=== PATIENT | female | born 1975 | race African-American/Black ===

== ENCOUNTER 2018-08-25 16:06 | Emergency (ER) | payer BC ==
[~2018-08-25] VITALS: Ht 167.6 cm; Wt 79.4 kg
[2018-08-25 16:08] VITALS: Ht 167.6 cm; Wt 79.4 kg
[2018-08-25 20:34] VITALS: BP 131/81
== END 2018-08-25 20:34 | disposition home or self-care (01) ==
LOC: ED 16:06
DX: S82.842A Displaced bimalleolar fracture of left lower leg, initial encounter for closed fracture (principal); I10 Essential (primary) hypertension; W18.30XA Fall on same level, unspecified, initial encounter; Y93.89 Activity, other specified; Y92.89 Other specified places as the place of occurrence of the external cause; Y99.8 Other external cause status
CPT/HCPCS: J2270; Q0092